=== PATIENT | female | born 1945 | race Caucasian/White ===

== ENCOUNTER 2017-05-13 19:56 | Inpatient (IN) | payer MEDICARE ==
[~2017-05-13] VITALS: Ht 154.9 cm; Wt 61.7 kg
[~2017-05-13 19:56] MED LIST: ALEVE220 M1 PO; CYCLOBENZAPRINE5 MG PO; DILT-XR180 MG PO; FLUTICASONE PRO16 GM NS; IBUPROFEN600 MG PO; LANSOPRAZOLE30 MG PO; PROBIOTIC1 EAC1 PO; SIMVASTATIN40 MG PO; TRAMADOL HCL50 MG PO; VITAMIN D31000 UNIT PO
[2017-05-13] MEDS ORDERED: COZAAR25 MG PO (20:13)
--- NOTE | 2017-05-14 00:10 | NUR ---
PT ARRIVED TO ROOM 119 FROM ED VIA STRETCHER. PT ABLE TO STAND AND TRANSFER TO BED WITH STANDBY ASSISTANCE. ADMISSION AND ASSESSMENT COMPLETED. DEMONSTRATED TO PT HOW TO CONTROL BED AND CALL NURSE IF NEEDED. PT RATES PAIN AN 8/10 IN RLQ. OFFERED MORPHINE, PT DECLINED. PT STATES SHE WOULD LIKE TO JUST TRY TO RELAX. PT NPO. NO FURTHER NEEDS AT THIS TIME. CALL LIGHT IN REACH.
--- NOTE | 2017-05-14 02:27 | NUR ---
IN TO CHECK ON PT, PT UP TO BATHROOM. PT REQUEST MORPHINE FOR PAIN. ASSISTED BACK TO BED. MORPHINE 2 MG GIVEN. IV ABX GIVEN. PT NPO. CALL LIGHT IN REACH.
--- NOTE | 2017-05-14 04:30 | NUR ---
IN TO CHECK ON PT, PT APPEARS TO BE SLEEPING. IVF INFUSING, PULSE OX IN PLACE. CALL LIGHT I9N REACH.
--- NOTE | 2017-05-14 05:06 | NUR ---
PT UP TO BATHROOM WITH ERNESTO ASSIST FROM [facility]. PT REQUEST PAIN MEDICATION, MORPHINE 2 MG GIVEN FOR 9/10 PAIN. PT NOTIFIED THAT IF PAIN DOES NOT RESOLVE WER CAN REPEAT MORPHINE DOSE. WILL REASSES AND MONIOR FOR PAIN. CALL LIGHT IN REACH.
--- NOTE | 2017-05-14 05:18 | NUR ---
PT ADMITTED TO FLOOR DURING SHIFT FOR ACUTE APPY. PT HAS RESTED INTERMITTENTLY THROUGH OUT SHIFT. C/O RLQ ABD PAIN, IV MORPHINE GIVEN. PULSE OX IN PLACE. D5LR @ 125 MLS INFUSING. PT NPO. STANDBY ASSIST TO BATHROOM. VITALS STABLE, AFIBRILE.
--- NOTE | 2017-05-14 05:36 | NUR ---
IN TO CHECK ON PT, PT STATES HER PAIN IS STILL 9/10. NOTED SHARP STABBING PAIN IN THE UMBILICAL REGION. PT OFFERED REMAINING MORPHINE DOSE. PT IS CONCERNED ABOUT RESPIRATORY DEPRESSION. STATES " I FEEL LIKE I AM HAVING A HARD TIME TAKING A BREATH NOW." REASSURED PT THAT PULSE OX IS IN PLACE AND RN WILL MONITOR FOR RESPIRATORY DEPRESSION. CURRENT O2 91% ON RA. PT PLACED ON O2 FOR COMFORT. PT AGREES TO PLAN, MORPHINE 2 MG GIVEN. WILL CONTINUE TO MONITOR PT.
--- NOTE | 2017-05-14 07:59 | NUR ---
PATIENT PAINFUL, 4MG MORPHINE GIVEN SLOW IV. REPORT RECEIVED FROM INVASIVE CARDIOVASCULAR TECHNOLOGIST, PATIENT REQUESTING USE OF BED ENCISO BECAUSE HAS BEEN UP SEVERAL TIMES TO URINATE AND STATES TOO PAINFUL. ALLERGY SPECIALIST HELPING PATIENT WASH FACE/ BRUSH TEETH.
--- NOTE | 2017-05-14 08:04 | NUR ---
DR HAMILTON IN TO SEE PATIENT.
--- NOTE | 2017-05-14 08:13 | NUR ---
surgery department asking for patient to be ready.
--- NOTE | 2017-05-14 10:49 | NUR ---
05/14/17 1049 Lauren Ascencio report from sec reporting consultant.
--- NOTE | 2017-05-14 11:26 | EKG ---
[facility] [address] [place] [address] Signed Sinus tachycardia Nonspecific ST and T wave abnormality Abnormal ECG When compared with ECG of 23-AUG-2016 11:29, Vent. rate has increased BY 41 BPM Confirmed by MADHAV MOBLEY MD ([id number]) on 05/14/2017 11:26:21 AM Electronically Signed By: MADHAV MOBLEY MD 05/14/17 1126 PATIENT NAME: BAKARI PARRA Electrocardiogram DATE OF : 49 PHYSICIAN: MADHAV MOBLEY MD REPORT #: [id number] REPORT IS CONFIDENTIAL AND NOT TO BE RELEASED WITHOUT AUTHORIZATION
--- NOTE | 2017-05-14 11:50 | NUR ---
back into room after PACU. daughters in room. Renata ANDRES did vital signs.
[2017-05-14] MEDS ORDERED: LOVAZA1 GM PO (12:24)
[2017-05-14] MEDS ORDERED: MOTRIN IB200 MG PO (12:28)
[2017-05-14] MEDS ORDERED: SENNA LAX8.6 MG PO (12:30)
[2017-05-14] MEDS ORDERED: COLACE100 MG PO (12:30)
--- NOTE | 2017-05-14 12:32 | NUR ---
MED REC COMPLETE WITH PATIENT AND DAUGHTERS WHO ARE INCREDIBLY WELL INFORMED. PATIENT FILLS AT [facility] [place].
--- NOTE | 2017-05-14 12:39 | NUR ---
Patient used bedpan per request and was given pre-surgery wipe down by Raiza MARKS.
--- NOTE | 2017-05-14 12:47 | NUR ---
vital signs reviewed from the 1240 time. Maria Fernanda mcclelland did them.
--- NOTE | 2017-05-14 12:59 | NUR ---
AT [address] HAMILTON ABOUT PATIENT FEELING NAUSEATED. VERBAL ORDER RECEIVED FOR PHENERGAN 12.5MG IV X 1 DOSE.
--- NOTE | 2017-05-14 13:01 | NUR ---
DR HAMILTON IN TO ROOM TO TALK WITH FAMILY AND PATIENT.
--- NOTE | 2017-05-14 14:54 | NUR ---
BEEN SLEEPING/RESTING IN ROOM WITH SISTER BY HER. STATES PAIN 4/10 AND DOESN'T NEED ANY PAIN MEDICATIONS NOW.
--- NOTE | 2017-05-14 16:19 | NUR ---
NOTIFIED DR HAMILTON ABOUT SOME CRACKLE SOUNDS DEVELOPING IN BASES OF LUNGS AND SOME SWELLING IN HER FEET, NEW ORDERS TO REDUCE IV FLUID RATE.
--- NOTE | 2017-05-14 19:10 | NUR ---
REPORT RECVD FROM DESHAUN ANDRES. PT AWAKE, RESTING IN BED. PT STATES HE PAIN IS MUCH BETTER SINCE SURGERY. LAP SITES C/D/I, MIRANDA DRAIN NOTED TO HAVE SANGUINEOUS DRAINAGE PRESENT. PULSE OX IN PLACE. IV ABX INFUSING, PT TOLERATING WELL. HERNDON IN PLACE, PER DESHAUN ANDRES OKAY PER DR. HAMILTON TO D/C HERNDON. PT DENIES PAIN AND NAUSEA AT THIS TIME. NO FURTHER NEEDS, DAUGHTER AT BEDSIDE. CALL LIGHT IN REACH.
--- NOTE | 2017-05-14 20:50 | NUR ---
IN TO SEE PT, PT AWAKE IN BED. ASSESSMENT COMPLETE. PT STATES HER PAIN IS "OKAY" AT THIS TIME. HERNDON CATH D/C PER MD ORDER. PT TOLERATING CLEAR LIQUIDS AT THIS TIME. PULSE OX IN PLACE. O2 AT 2L FOR SAT OF 90%. O2 DESATURATION NOTED WHILE SLEEPING DURING PREVIOUS SHIFT. PT ADVISED TO CALL IF SHE FEELS THE URGE TO URINATE. NO FURTHER NEEDS AT THIS TIME. DAUGHTER AT BEDSIDE, CALL LIGHT IN REACH.
--- NOTE | 2017-05-14 23:45 | NUR ---
IN TO CHECK ON PT, PT SLEEPING. AROUSES EASILY TO SOUND. PT STATES PAIN IS TOLERABLE AT THIS TIME. PT DOES NOT FEEL THE NEED TO VOID AT THIS TIME. WILL CONTINUE TO MONITOR UO. NO FURTHER NEEDS AT THIS TIME, DAUGHTER AT BEDSIDE. CALL LIGHT IN REACH.
--- NOTE | 2017-05-15 02:18 | NUR ---
BOTTLE LABEL INSPECTOR IN RROM TO OBTAIN VITALS. PT UP TO BATHROOM, UO 400 MLS. PT AMBULATED IN ROOM, TOLERATED WELL. REQUESTING MEDICATION FOR PAIN. DISCUSSED ORAL VS IV MEDICATION. DUE TO PT HAVING BOUT OF NAUSEA AFTER TAKING PO MEDICATION ON PREVIOUS SHIFT PT REQUEST MORPHINE. MORPHINE 2 MG GIVEN. PT BACK TO BED TOLERATED WELL. IV ABX STARTED. PT GIVEN POPSICLE. DRSG C/D/I, MIRANDA IN PLACE. NO FURTHER REQUEST AT THIS TIME. DAUGHTER AT BEDSIDE. CALL LIGHT IN PLACE.
--- NOTE | 2017-05-15 04:12 | NUR ---
IN TO PT'S ROOM, PT REQUEST HELP UP TO BATHROOM. PT OOB, TOLERATED WELL. UO 600 MLS. PT ASSISTED BACK TO BED. DAUGHTER AT BEDSIDE TALKING TO PT. PT STATES HER PAIN IS "GOOD." IV ABX INFUSING. PT ATTEMPTING TO REST. NO FURTHER NEEDS AT THIS TIME. CALL LIGHT IN REACH.
--- NOTE | 2017-05-15 05:08 | NUR ---
PT HAS HAD UNEVENTFUL SHIFT, RESTED WELL. PT HAS HAD MINIMAL PAIN, PRN MORPHINE GIVEN X1. DENIES NAUSEA. HERNDON CATH D/C AT 2049. PT HAS HAD GOOD UO. PT ON CLEAR LIQUID, TOLERATING WELL. PULSE OX IN PLACE. IV ABX GIVEN. LAP SITE DRSG C/D/I, MIRANDA IN PLACE WITH SEROSANGUINEOUS NOTED. VITALS STABLE, AFIBRILE.
--- NOTE | 2017-05-15 07:38 | NUR ---
BEDSIDE REPORT RECEIVED FROM MAIDA ANDRES AT 0715. PT LYING IN BED AWAKE RUBBING ABDOMEN. REPORTS SOME PAIN. LAP SITES C/D/I. MIRANDA DRAIN EMPTYING SEROSANGUINOUS FLUID. RN REPORTED GOOD URINE OUTPUT AFTER HERNDON REMOVED. LAC S/L.
--- NOTE | 2017-05-15 07:48 | NUR ---
PATIENT CALLED TO BE MOVED TO CHAIR. ALSO WANTED TO GET UP TO GO TO BATHROOM. PATIENT TRIED TO REFUSE TO WEAR NON-SLIP SOCKS, CONVINCED HER OTHERWISE. WHITEBOARD UPDATED.
--- NOTE | 2017-05-15 10:49 | NUR ---
PATIENT'S DAUGHTERS HELPED HER WITH AM CARE. THEY CHANGED HER GOWN, DID HER HAIR, ETC. PATIENT REQUESTED PILLOW UNDER HER FEET BECAUSE BED IS NOT 100% FLAT.
--- NOTE | 2017-05-15 11:46 | NUR ---
PATIENT IN BED DOING WELL. DAUGHTERS IN ROOM
--- NOTE | 2017-05-15 12:19 | NUR ---
pt c/o nausea. zofran order received from Dr Presley. Mepilex dressing around MIRANDA insertion site changed. slight drainage noted.
--- NOTE | 2017-05-15 12:44 | NUR ---
NURSE IN ROOM
--- NOTE | 2017-05-15 13:56 | NUR ---
PT PARTICULAR WITH ALL CARES. DILAUDID PO GIVEN. C/O ABD PAIN AND NAUSEA. ZOFRAN GIVEN FOR NAUSEA. ENCOURAGING PATIENT TO AMBULATE. PT WANTS TO REST. WILL ALLOW PATIENT TO REST AND THEN WILL HAVE HER AMBULATE THIS AFTERNOON. DAUGHTER ATTENTIVE AT BEDSIDE. FLAGYL GIVEN PO.
--- NOTE | 2017-05-15 15:46 | NUR ---
PATIENT IN ROOM WITH FAMILY.
--- NOTE | 2017-05-15 17:44 | NUR ---
ENCOURAGED AMBULATION TODAY, SBA. MIRANDA DRAIN HAD TOTAL OF 70ML OUT TODAY. ROOM AIR NOW. WILL WATCH WHILE RESTING/SLEEPING. CONT PULSE OX IN PLACE. LAP SITES X3 C/D/I WITH STERISTRIPS. FLAGYL/CIPRO. SHOWER OK TOMORROW. REGULAR DIET TOLERATED. C/O ABD PAIN-- LIKELY RELATED TO GAS. ENCOURAGED INCENTIVE SPIROMETER TODAY TOO (NO ORDER) PER PT REQUEST TO AVOID PNEUMONIA. DEPENDENT ON DAUGHTERS TO VOICE NEEDS-- ENCOURAGE PATIENT TO MAKE NEEDS KNOWN.
--- NOTE | 2017-05-15 19:20 | NUR ---
REPORT RECVD FROM VANESA ANDRES. PT STATES SHE HAS HAD AN "OKAY DAY." PT WAS ADVANCED TO A REG SOFT DIET, BUT HAS NOT HAD A LOT OF INTAKE. JUST PRIOR TO REPORT PT HAD A BOUT OF NAUSEA AND 150 MLS OF EMESIS. PT STATES " i FEEL BETTER NOW." LAP SITE IN THE UPPER EPIGASTRIC AND UNMBILICAL AREA D/I. DRSG SURROUNDING MIRANDA NOTED TO BE SATURATED WITH SEROUS FLUID, WILL CHANGE DRSG. PT IS SL, PULSE OX IN PLACE WHEN SLEEPING. O2 REQUIRED WHEN SLEEPING DUE TO DESATURATION. DAUGHTER AT BEDSIDE. NO FURTHER NEEDS AT THIS TIME, CALL LIGHT IN PLACE.
--- NOTE | 2017-05-15 19:45 | NUR ---
PT UP IN [place] AMBULATING WITH ASSIST FROM DAUGHTER. PT TOLERATED WELL. PT ASSISTED BACK TO BED. CALL LIGHT IN REACH.
--- NOTE | 2017-05-15 20:45 | NUR ---
IN TO CHECK ON PT. PT STATES SHE IS FEELING NAUSEATED AT THIS TIME. C/O R MID/LQ PAIN. PT HAS RECVD ZOFRAN AT THIS TIME. DISCUSSED WITH THE PT THAT PO ABX AND MEDICATIONS ARE ORDERED FOR 2099. PT BELIEVES SHE WILL BE ABLE TO TAKE HER MEDICATIONS. NO FURTHER NEEDS AT THIS TIME. CALL LIGHT IN PLACE.
--- NOTE | 2017-05-15 20:46 | NUR ---
PT UP IN [place] AMBULATING WITH ASSIST FROM DAUGHTER. PT TOLERATED WELL. PT ASSISTED BACK TO BED. CALL LIGHT IN REACH.
--- NOTE | 2017-05-15 21:20 | NUR ---
IN TO ROOM TO GIVE PM MEDICATION. PT LAYING IN BED WITH CLOTH ON FACE RUBBING RLQ. PT APPEARS TO BE SWEATING. PT STATES SHE FELLS NAUSEATED. PT DOES NOT FEEL THAT SHE CAN TAKE PO MEDICATIONS AT THIS TIME. PT GIVEN SELENE CRACKER AND PEANUT BETTER. DISCUSSED CONTACTING MD FOR ONGOING NAUSEA, PT AGREES WITH PLAN. NO FURTHER NEEDS AT THIS TIME. CALL LIGHT IN REACH.
--- NOTE | 2017-05-15 21:50 | NUR ---
IN TO CHECK ON PT, PT IN BED. PT C/O CONTINUED NAUSEA. IVF STARTED. RN TO MED ROOM TO OBTAIN PHENERGAN. PHONE CALL FROM TELEPHARMACY RECVD TO VERIFY MERREM DOSE. PER CLEM CHESTER [facility] STANDARD DOSE MERREM 1 GM IV Q8. CLEM WILL SEND FAX MESSAGE AND WOULD LIKE TO VERIFY WITH MD. IN TO PT ROOM, PHENERGAN STARTED. PT UP IN BED WRETCHING. COLD CLOTH AND WATER GIVEN. NAUSEA IMPROVED AFTER PHENERGAN INFUSION. PT RESTING IN BED, NO FURTHER NEEDS AT THIS TIME. CALL LIGHT IN REACH.
--- NOTE | 2017-05-15 22:00 | NUR ---
IN TO CHECK ON PT, IVF STARTED. PT CONTINUES TO HAVE NAUSEA. RN OUT OF ROOM TO OBTAIN PHENERGAN. CALL RECVD FROM CLEM [facility] AT TELEPHARMACY TO VERIFY MERREM DOSE. PER CLEM STANDARD DOSE OF MERREM 1 GM IV Q8HRS GIVEN FOR APPENDICITIS UNLESS DECREASED DUE TO AGE OR KIDNEY FX. CLEM WILL SEND FAX COPY OF VERIFICATION AND ASKS THAT MD VERIFY ORDER. WILL CALL MD FOR CLARIFICATION.
--- NOTE | 2017-05-15 22:00 | NUR ---
SPOKE WITH DR. HAMILTON MEDICATION CHANGES FOLLOWS DUE TO NAUSEA AND ONGOING PAIN. START D5LR @ 85 MLS/HR, PHENERGAN 12.5 MG IV q6P FOR N/V, START MERRAM 500 MG, IV Q8 AND STOP PO ABX UNTIL PT ABLE TO TAKE PO. ORDERS VERIFIED WITH DR. HAMILTON VIA READ BACK METHOD.
--- NOTE | 2017-05-15 22:10 | NUR ---
IN PT ROOM TO ADMINISTER PHENERGAN. PT SITTING UP IN BED, RUBBING STOMACH, SWEATING. PT STATES " I FEEL LIKE I NEED TO THROW UP AND IT WOULD BE BETTER." PHENERGAN 12.5 MG DILUTED IN 20 MLS NS INFUSED OVER 10 MINUTES. DURING TIME OF INFUSING PT BEGAN WRETCHING, NO EMESIS NOTED. NAUSEA IMPROVED WITH MEDICATION. PO PAIN MEDICATION OFFERED, PT DECLINED. PT STATES "I JUST WANT TO SLEEP." WILL CONTINUE TO MONITOR.
--- NOTE | 2017-05-15 22:30 | NUR ---
DISCUSSED CLARIFICATION WITH DR. HAMILTON. PER DR. ALFONSO HERRERA TO CHANGE TO MERREM 1 GM IV Q8 HRS PER RECOMMENDATION OF CLEM [facility] ORDER VERIFIED BY READ BACK, WILL CHANGE AND SEND TO PHARMACY.
--- NOTE | 2017-05-16 00:10 | NUR ---
IN TO CHECK ON PT, PT AWAKE. PT STATES " I STILL FEEL LIKE I NEED TO VOMIT." PT STATES SHE FEELS THAT SHE HAS NOT BEEN GETTING HER MEDICATION FOR GERD FOR THE PAST 3 DAYS WHICH IS CONTRIBUTING TO HER NAUSEA AT THIS TIME. PT REPOSITION FOR COMFORT AND GIVEN A WARM COMPRESS FOR RLQ PAIN. DRSG AT MIRANDA SITE NOTED TO BE SATUARTED WITH SEROUS FLUID. DRSG CHANGED. WILL CALL MD FOR TO DISCUSS PT'S C/O GERD.
--- NOTE | 2017-05-16 00:15 | NUR ---
SPOKE WITH DR. HAMILTON, DISCUSSED PT C/O GERD. DR. HAMILTON STATES THAT HE HAD ORDERED IV MEDICATION ROBIN AND POST OPERATIVE FOR ACID REFLUX. PER DR. HAMILTON ORDER CHANGED TO PO DURING MORING ROUNDS. PER DR. HAMILTON GIVE MYLANTA 60 CC, PO NOW FOR GERD. ORDER VERIFIED BY READ BACK. MEDICATION ORDERED.
--- NOTE | 2017-05-16 00:30 | NUR ---
MYLANTA 60 CC GIVEN TO PT BY PRE K SPECIAL EDUCATION TEACHER. PT ADMINISTERED 30 CC, DECLINED 30 CC. RN IN TO CHECK ON PT DURING ADMINISTRATION. PT RESTING IN BED. PT IS HOPING TO GET SOME SLEEP. REPOSITIONED FOR COMFORT.
--- NOTE | 2017-05-16 01:50 | NUR ---
IN TO CHECK ON PT, VITAL SIGNS OBTAINED BY ASSOCIATE PROFESSOR OF AUTOMATION. VS STABLE, PT AFIBRILE. PT OFFERED PAIN MEDICATION FOR FACIAL GREMICE AND OVERALL LOOK OF DISCOMFORT. PT DECLINED. PT STATES " I AM JUST GOING TO TRY TO GO BACK TO SLEEP." WILL CONTINUE TO MONITOR. DAUGHTER AT BEDSIDE. CALL LIGHT IN REACH.
--- NOTE | 2017-05-16 04:12 | NUR ---
PT CALLED, ASSITED UP TO BATHROOM TO VOID. PT REQUEST IV PAIN MEDICATION AT THIS TIME. RN IN ROOM TO ADMINISTER MORPHINE 4 MG, PT SITTING UP IN BED STATING " I FEEL LIKE I AM GOING TO BE SICK." RN RETRIVED ZOFRAN FOR NAUSEA, MEDICATION ADMINISTERED. MORPHINE ADMINISTER SECONDARY TO ZOFRAM. PT REPOSITION AND GIVEN WET CLOTH. NAUSEA IMPROVED. PULSE OX AND O2 IN PLACE. WILL CONTINUE TO MONITOR PT. DAUGHTER AT BEDSIDE. CALL LIGHT IN PLACE.
--- NOTE | 2017-05-16 05:40 | NUR ---
PT HAS HAD DIFFICULT SHIFT, HAS HAD MINIMAL SLEEP. PT C/O NAUSEA AND WRETCHING X2, NO EMESIS NOTED. C/O ONGOING PAIN IN RLQ. POOR PO INTAKE. NEW ORDERS GIVEN TO RESTART D5LR @ 85 ML, PHENERGAN 12.5 MG, IV Q6P AND MERREM 1GM IV Q8. PER MD TO D/C PO ABX UNTIL PT IS ABLE TO TOLERATE PO. PT GIVEN PHERERGAN, ZOFRAN AND MORPHINE FOR PAIN. VITALS STABLE, AFIBRILE. VOIDING QS. MIRANDA DRAIN IN PLACE WITH LEAKAGE NOTED AROUND SITE. PT AMBULATES WITH STANBY ASSIST. PULSE OX IN PLACE AND O2 @ 1.5L WHILE SLEEPING DUE TO DESATURATION. LAP SITE C/D/I.
--- NOTE | 2017-05-16 06:00 | NUR ---
PT CALLED, IN TO ASSIST UP TO BATHROOM. PT TOLERATED WELL. PT STATES " I FEEL BETTER." PT AMBULATED TO CHAIR. PT STATES HER NAUSEA IS BETTER. OFFERED PHENERGAN, PT AGREED TO MEDICATION BEFORE BREAKFAST. BREAKFAST ORDER. IV ABX STARTED. NO FURTHER NEEDS AT THIS TIME. DAUGHTER AT BEDSIDE. CALL LIGHT IN REACH.
--- NOTE | 2017-05-16 08:00 | NUR ---
PATIENT UP AMBULATED IN HER[place] X1, DISCUSSED PAIN CONTROL REGIME AND AGREED UPON POC FIRST ADMINISTERING IV ZOFRAN AND THEN 1 TAB PO DILAUDID AND 2 MG IV MORPHINE. PATIENT TOLERATED WELL. ATE 30% OF BREAKFAST TOLERATING EGGS AND STRAWBERRIES. PATIENT AND FAMILY HAD COMPLAINTS FROM STAFF YESTERDAY, REPORTED TO CHARGE NURSE AND WET AND DRY SUGAR BIN OPERATOR. PATIENT ENCOURAGED TO STAY UP AND, PATIENT STATES " I NEED A NAP". VS STABLE.
--- NOTE | 2017-05-16 08:28 | NUR ---
PT AWAKE IN CHAIR. EMPTYED MIRANDA TUBE. TOOK TO BR. EMPTYED GARBAGE. CHANGED LINENS.
--- NOTE | 2017-05-16 08:30 | NUR ---
CALLED DR. HAMILTON TO NOTIFY HIM OF INCREASED DRAINAGE IN MIRANDA TUBE, CLOUDY BLOOD TINGED DRAINAGE. REINFORCED WITH GAUZE AND ABD AGAINST SITE, AFTER PATIENT'S SHOWER. NO NEW ORDERS AT THIS TIME. PATIENT BACK IN BED, AFTER BEING TOLD TO STAY UP. PATIENT STATES " THE PAIN IS GETTING BETTER, BUT I AM SO WORN OUT FROM THE NIGHT BEFORE".
--- NOTE | 2017-05-16 13:00 | NUR ---
DR. HAMILTON ROUNDING ON PATIENT, DISCUSSED WITH PATIENT THE IMPORTANCE OF STAYING UP DURING THE DAY. ORDERS TO NOT ALLOW BLINDS TO BE LOWERED. MOVE PATIENT TO WINDOW SIDE WITH VIEW, AND NEW PAIN MEDICAITONS, TRAMADOL AND MOTRIN. DC'D IV MORPHINE. PATIENT VERBALIZES UNDERSTANDING. IS NOW UP AMBULATING IN HALLS WITH FAMILY. STATES " DOCTOR WOULDN'T WANT TO BE TREATED LIKE THIS, WHY IS HE TREATING ME LIKE THIS?" REASSURED PATIENT POC WAS FOR HER OWN WELL BEING.
--- NOTE | 2017-05-16 15:00 | NUR ---
PATIENT HAS BEEN AMBULATING FREQUENTLY, FAMILY IN ROOM. PATIENT APPEARS AWAKE. BLINDS OPEN. DRAINAGE INTO MIRANDA SLOWING, CONTINUES TO APPEAR CLOUDY. REINFORCED WITH NEW ABDS. PATIENT STATES " I AM FEELING OKAY." ABDOMEN ROUND, BOWEL TONES ACTIVE. GAUZE TO ABDOMEN REINFORCED. BOWEL TONES ACTIVE. PATIENT UP AMBULATING IN HALLS WITH FAMILY.
--- NOTE | 2017-05-16 15:40 | NUR ---
PATIENT WAS UP IN THE HALLWAY AMBULATING WITH ASSIST FROM HER DAUGHTER. PATIENT TOLERATES AMBULATION WELL AND IS STEADY ON HER FEET. PATIENT MIRANDA SITE LEAKING SERROUS FLUID, DRAIN TUBE STRIPPED AND NEW DRESSING APPLIED TO THE DRAIN SITE ABDOMINAL BINDER PLACED ON HER AT THIS TIME PER PATIENT REQUEST.
--- NOTE | 2017-05-16 18:00 | NUR ---
PATIENT TOLERATING PO WELL, NO NAUSEA OR VOMITTING. PATIENT STATES " I FEEL NORMAL AGAIN " PATIENT HAS NOT REVIEVED ANY NARCOTICS FOR PAIN CONTROL SINCE THIS MORNING. HAS BEEN UP THROUGHOUT THE DAY AMBULATING AT LEAST 6 TIMES, PATIENT FAMILY PROVIDING SUPPORT. MIRANDA DRAIN NOTED LESS DRAINAGE. PATIENT STATES " I HAVE THE URGE TO PASS GAS, BUT ITS JUST NOT QUITE THERE" BOWEL TONES ACTIVE, VS STABLE. GOOD I&O. LUNG SOUNDS CLEAR THROUGHOUT. PATIENT SITTING IN RECLINER CROSS LEGGED. APPEARS CALM AND COMFORTABLE. RATES PAIN 2/10 ON PAIN SCALE. NO ACID REFLUX COMPLAINTS AT THIS TIME.
--- NOTE | 2017-05-16 18:17 | NUR ---
TOOK PT PUDDING. FRESH ICE WATER. TOOK TO THE BR. DOING WELL
--- NOTE | 2017-05-16 19:52 | NUR ---
REPORT RCVD FROM NAZ ANDRES. IN ROOM TO SEE PT, PT AWAKE AND UP IN CHAIR. AT BEGINNING OF SHIFT RN NOTED PT AMBULATING IN HALLWAY. PT STATES SHE "HAD A GREAT DAY." PT STATES HER PAIN IS WELL CONTROLLED. DAUGHTER AT BEDSIDE. NO FURTHER NEEDS AT THIS TIME. CALL LIGHT IN PLACE.
--- NOTE | 2017-05-16 21:10 | NUR ---
IN TO CHECK ON PT, PT AWAKE PREPARING FOR BED. PT UP TO THE RESTROOM WITH NO ASSIST, TOLERATED WELL. STEADY ON FEET. PT REPORTS AND RN WITNESSED POSITIVE FLATUS. PM MEDICATION GIVEN. MOTRIN GIVEN FOR PAIN OF 10/10. IV ABX STARTED. VITALS OBTAINED. PT AFIBRILE. NO FURTHER NEEDS AT THIS TIME. DAUGHTER AT BEDSIDE. CALL LIGHT IN PLACE.
--- NOTE | 2017-05-16 23:44 | NUR ---
IN TO CHECK ON PT, PT IN BED. APPEARS NOT BE SLEEPING. NO APPARENT DISTRESS NOTED. DAUGHTER AT BEDSIDE. CALL LIGHT IN REACH.
--- NOTE | 2017-05-17 01:55 | NUR ---
PATIENT USED THE BATHROOM.
--- NOTE | 2017-05-17 02:02 | NUR ---
IN TO CHECK ON PT, PT AWAKE. PT STATES PAIN IS GOOD. OFFERED MEDICATION FOR PAIN, PT DECLINED. VITALS OBTAINED VITALS STABLE, AFIBRILE. PT UP TO BATHRROM WITH STANDBY ASSIST, TOLERATED WELL. MIRANDA NOTED TO HAVE SCANT OUTPUT. PT BACK TO BED. PT STATES " I SLEPT LIKE A ROCK." NO FURTHER NEEDS AT THIS TIME. DAUGHTER SLEEPING AT BEDSIDE. CALL LIGHT IN REACH.
--- NOTE | 2017-05-17 04:15 | NUR ---
IN TO CHECK ON PT, PT APPEARS TO BE SLEEPING. RR EVEN AND UNLABORED. NO APPARENT DISTRESS NOTED. IVF INFUSING. DAUGHTER SLEEPING AT BEDSIDE. CALL LIGHT IN REACH.
--- NOTE | 2017-05-17 05:15 | NUR ---
PT HAS HAD A UNEVENTFUL SHIFT, RESTED WELL. PT HAS HAD MINIMAL PAIN THAT IS WELL CONTROLLED WITH MOTRIN. DENIES NAUSEA AND HEARTBURN. IVF D5LR @ [address] WITH MINIMAL OUTPUT. DRSG C/D/I. POSITIVE FLATUS. UP TO AMBULATE 1 PERSON STANDBY ASSIST, TOLERATES WELL. REGULAR DIET, TOLERATING WELL.
--- NOTE | 2017-05-17 08:16 | NUR ---
PATIENT IV SITE RED AT AND HARDENED. IV ANTIBIOTIC MOSTLY INFUSED THIS MORNING. PATIENT TOLERATING GOOD PO AND DRINKING WELL. POC CARE IS TO TRANSITION PATIENT TO PO ANTIBIOTICS, WILL NOTIFIY DR. HAMILTON BEFORE STARTING NEW IV ACCESS. PROVIDED PATIENT WITH WARM PACK TO PLACE AT SITE. PATIENT UP AMBULATED IN HALLS, NO COMPLAINTS OF HEARTBURN. PAIN WELL CONTROLLED WITH IBUPROFEN. PLAN TO SHOWER AFTER BREAKFAST. PATIENT REPORTS PASSING LOTS OF FLATUS AND FEELS SHE MAY HAVE BM SOON. DRAINAGE FROM MIRANDA DECREASED AND SCANT AMOUNTS NOTED NOW. STOMACH LESS DISTENDED AND SOFT. ACTIVE BOWEL TONES. PUNCTURE SITES C/D/I, NO SIGNS OF INFECTION.
--- NOTE | 2017-05-17 09:41 | NUR ---
PT DOING WELL. SET UP FOR SHOWER.
--- NOTE | 2017-05-17 10:35 | NUR ---
PT AWAKE IN CHAIR. DOING WELL.
--- NOTE | 2017-05-17 13:00 | NUR ---
DR. HAMILTON CALLED TO FLOOR, ORDERED TO DC IV, AND IV ANTIBIOTIC MERREM, RE START PO FLAGYL AND CIPRO FROM PREVIOUS ORDERS ON HOLD. PATIENT VERBALIZED UNDERSTANDING. NOW AMBULATING IN HALLS. ADMINISTERED MOTRIONM, RATES PAIN 3/10 ON PAIN SCALE. ACTIVE FLATUS.
--- NOTE | 2017-05-17 13:17 | NUR ---
PT AWAKE IN CHAIR DOING WELL TOOK LUNCH TRAY. FRESH WATER.
[2017-05-17] MEDS ORDERED: METRONIDAZOLE250 MG PO (15:40)
[2017-05-17] MEDS ORDERED: CIPROFLOXACIN500 MG PO (15:40)
[2017-05-17] MEDS ORDERED: MOTRIN IB200 MG PO (15:41)
--- NOTE | 2017-06-05 07:48 | OR ---
[facility] [address] [place], [place] [address] Signed DATE OF PROCEDURE: 05/14/17 PREOPERATIVE DIAGNOSIS: Acute appendicitis. POSTOPERATIVE DIAGNOSIS Generalized peritonitis with right lower abdominal abscess and gross purulence. Severe perforated appendicitis. PROCEDURE Laparoscopy with laparoscopic drainage of abscess fluid and peritoneal lavage. Laparoscopic appendectomy (complicated and difficult). SURGEON: Susie Hamilton MD. ANESTHESIA General endotracheal, Maria Fernanda Gaspar CRNA and local 10 mL of 0.25% Marcaine with Epinephrine. INDICATION This 72-year-old white woman was feeling poorly for the past 2 days and yesterday at approximately 6:00 p.m. had a sudden onset of severe right lower abdominal pain. She presented late in the evening to the emergency room where she was evaluated by Dr. Neff. She was found to have tenderness in the right lower abdomen. A CT scan was performed which showed inflammatory changes as well as probable appendicitis. She was fluid resuscitated, given intravenous antibiotic Cefoxitin, parental pain medication and so on. Evaluation this morning shows her to be markedly tender in the right lower abdomen with generalized peritonitis as well. She has been fluid resuscitated and now to undergo laparoscopic appendectomy as appropriate. The risks of bleeding, infection, need for open procedure, need for other indicated procedures and so forth was all reviewed in detail. She understands and wished to proceed. FINDINGS Gross purulence was noted with fibrinous peel over the bowel in the lower abdomen on the right. The liver and gallbladder were essentially normal. Drainage of the abscess cavity including above the fibrinous peel of the bowel surfaces was undertaken and the appendix was noted to be markedly inflamed and with probable perforation and sealing of the base of the appendix. The appendix was transected and flushed with the cecum. There were no complications. DESCRIPTION OF PROCEDURE The patient was brought to the operating room, given a general endotracheal anesthetic. Electronically Signed By: SUSIE HAMILTON MD 06/05/17 0748 PATIENT NAME: BAKARI PARRA OPERATIVE REPORT DATE OF : 49 PHYSICIAN: SUSIE HAMILTON MD REPORT #: [id number] REPORT IS CONFIDENTIAL AND NOT TO BE RELEASED WITHOUT AUTHORIZATION [facility] [address] [place], [place] [address] Signed A Leroy catheter was placed. Preoperative antibiotic Cefoxitin had been given. Sequential compression device stockings were used. The abdomen was prepared with a Chlorhexidine solution and draped sterilely. Infraumbilical incision was made and using an open Kadie cannula technique, pneumoperitoneum was achieved to a level of 14 mmHg of carbon dioxide gas. Intraabdominal inspection immediately noted a fibrinous peel of purulence and collection of pus in the right lower abdomen and along the right pericolic gutter. Examination of the upper abdomen showed a normal liver and a slightly distended gallbladder but not an acutely inflamed gallbladder. A 10 mm epigastric port was placed and the scope replaced to that area. Manipulation of the bowel loops showed them to be matted together in the right lower abdomen related to the fibrinous peel which had been present for some time. A suprapubic port was then placed under direct visualization and 2 hand manipulation of the lower abdominal contents undertaken. Irrigation was undertaken to aspirate purulent material within the peritoneal cavity and most localized in the right lower abdomen. The fibrinous peel over the small bowel was later generally cleaned up entirely with irrigation. The taenia libera of the right colon was identified and followed down to what would be considered the base of the appendix. A phlegmonous mass was noted there and with various manipulations the appendix could be delivered. It was located in the inferolateral position. Ultimately, the entire appendix was freed from the fibrinous peel and the findings were consistent with acute perforated appendicitis with abscess. Further manipulation of the appendix was undertaken and the mesoappendix appeared to be fused to the appendix itself. Ultimately a plane was developed between the two and using an Endo DEAN stapling device the mesoappendix was secured. Further dissection of the base of the appendix need the transition to cecum rather unclear. With various manipulations ultimately the base of the appendix was transected with 2 separate loads providing a wide base consistent with the base of the cecum in continuity with the appendix. The appendix was placed in an Endobag and extracted through the infraumbilical port site and opened. Dense inflammatory changes and so forth were noted. There was no sign of fecalith or anything of that sort. I suspect that the appendix had been perforated and the congealed inflammatory tissue obscuring the kevin opening at this time. Additionally irrigation was undertaken copiously in the right lower abdomen and right pericolic gutter and over the liver as well. The small bowel was freed from its encumbrances with fibrinous peel irrigated as well. Photographs were taken throughout. Given the extent of her problem, a drain was deemed appropriate. To the suprapubic port a 7 mm flat Edwin drain was placed and to the right lower abdomen and right pericolic gutter. I have secured the skin with nylon suture. The trocars were then removed under direct visualization showing no sign of bleeding. The infraumbilical fascial incision was reapproximated with interrupted 0 Vicryl suture. All wounds were copiously irrigated with saline solution. Skin closed with interrupted 3-0 Vicryl. Steri-Strips were applied. The operation was prolonged, complicated, and difficult on the basis of the extent of Electronically Signed By: SUSIE HAMILTON MD 06/05/17 0748 PATIENT NAME: BAKARI PARRA OPERATIVE REPORT DATE OF : 49 PHYSICIAN: SUSIE HAMILTON MD REPORT #: [id number] REPORT IS CONFIDENTIAL AND NOT TO BE RELEASED WITHOUT AUTHORIZATION [facility] [address] [facility] [place], [place] [address] Signed inflammation and so forth. It was accomplished safely. She was extubated without problem and taken recovery in good condition. MD HIMA Buchanan/Hany /[id number] cc: MD Kevin Buenrostro DO Electronically Signed By: SUSIE HAMILTON MD 06/05/17 0748 PATIENT NAME: BAKARI PARRA OPERATIVE REPORT DATE OF : 49 PHYSICIAN: SUSIE HAMILTON MD REPORT #: [id number] REPORT IS CONFIDENTIAL AND NOT TO BE RELEASED WITHOUT AUTHORIZATION
--- NOTE | 2017-06-05 08:27 | DS ---
[facility] [address] [place], [place] [address] Signed DATE OF DISCHARGE: 05/17/17 REASON FOR ADMISSION This 72-year-old white woman is retired from [employer], is , her is away in [place] with 5 grown children. She presented to the emergency room with approximately 2 days of vague abdominal pain. Her evaluation by Dr. Neff was concerning for clinical diagnosis of acute appendicitis. Her white count was 10.5. A CT scan of the abdomen was performed showing dilated inflammatory changes of the appendix. She was admitted for further evaluation and care. PAST MEDICAL HISTORY Does include degenerative cervical spine disease despite morphine been given on a routine basis in the past. She does take Naprosyn and occasions of Motrin as well. PERTINENT PHYSICAL EXAMINATION GENER AL: A pleasant white woman, who is quite uncomfortable in appearance, alert and oriented and not systemically toxic. HEENT: Mucous membranes reasonably moist. NECK: Trachea is midline. CHEST: Clear. HEART: Regular without murmur. ABDOMEN: Nondistended. Rovsing sign is positive. She does have peritoneal findings including right lower abdominal tenderness. There is no palpable mass. HOSPITAL COURSE She was admitted at about midnight and given fluid resuscitation, parenteral antibiotics and pain medication. 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 Plans were made for probable laparoscopic appendectomy. She underwent laparoscopic evaluation, which showed abscess fluid and fibrinous peel of the small bowel on the right side of the abdomen. The abscess was drained and copious irrigation undertaken. She was found to have a markedly inflamed appendix, which may have had resealing of the perforation site in the area. This was excised completely. The gallbladder was not pathologic in appearance nor was the liver or other areas of the abdomen. A drain was placed given the extent of the inflammation and the abscess itself. Given her findings, she was changed from Cefixime to Meropenem. She had marked improvement of her symptoms of abdominal pain. The drain did not drain purulent material, but did drain a copious amount of relatively thin, slightly turbid fluid. She was found to have some intolerance of pretty much any oral analgesic that had opiate including Dilaudid. She was transitioned to primarily Motrin, which she tolerated well. Electronically Signed By: SUSIE HAMILTON MD 06/05/17 0827 PATIENT NAME: BAKARI PARRA DISCHARGE SUMMARY DATE OF : 49 PHYSICIAN: SUSIE HAMILTON MD REPORT #: [id number] REPORT IS CONFIDENTIAL AND NOT TO BE RELEASED WITHOUT AUTHORIZATION [facility] [address] [place], [place] [address] Signed The drain was placed diminished in output and ultimately was able to be removed as it showed only a small amount of clear fluid. By day of discharge, she is ambulating well, tolerating a regular diet, has minimal incisional pain, well managed by Motrin alone and has tolerated oral antibiotic regimen, which will include Flagyl and Cipro. Her discharge plan included a return to see me in approximately 4 weeks or so. She will call for an appointment tomorrow. She is to lift no more than 20 pounds for the next 2 weeks. The drain has been removed. Band-Aid covering the site in the suprapubic area will be removed tomorrow. She is permitted to shower. As regards driving, as long as she is not taking opiates, she should use caution in attempting to drive in public roads, but should do well overall in that regard. She is permitted to shower, but should leave Steri-Strips on. DISCHARGE MEDICATIONS Include Cipro 500 mg 1 tab p.o. b.i.d., #10; also Flagyl 250 mg 1 tab p.o. t.i.d., #15. She will continue with her usual medications including: Diltiazem XR 180 mg p.o. daily. Also fluticasone propionate 2 puffs in each nostril daily. Lansoprazole 30 mg p.o. daily. Simvastatin 40 mg p.o. daily. Vitamin D3 a 1000-unit capsule daily. Naprosyn 220-mg capsule one p.o. daily for back pain. Probiotic lactobacillus acidophilus 1 tab p.o. daily. Cyclobenzaprine (Flexeril) 5 mg p.o. as needed for neck and back spasm. Losartan (Cozaar) 25 mg p.o. daily. Lovaza (omega-3 capsule) 2 caps p.o. b.i.d. DSS 100 mg p.o. daily. Senna laxative 8.6-mg tablet p.o. daily. DISCHARGE DIAGNOSES Peritonitis related to right-sided lower abdominal abscess related to severe appendicitis. Status post laparoscopic drainage of abscess with lavage and laparoscopic appendectomy and placement of drain. Hypertension. General intolerance to opiate medications. Chronic cervical spine pain with degenerative disease. Dyslipidemia. Electronically Signed By: SUSIE HAMILTON MD 06/05/17 0827 PATIENT NAME: BAKARI PARRA DISCHARGE SUMMARY DATE OF : 49 PHYSICIAN: SUSIE HAMILTON MD REPORT #: [id number] REPORT IS CONFIDENTIAL AND NOT TO BE RELEASED WITHOUT AUTHORIZATION [facility] [address] [place], [place] [address] Signed MD HIMA Buchanan/Hany /[id number] cc: MD Shane Buenrostro DO Electronically Signed By: SUSIE HAMILTON MD 06/05/17 0827 PATIENT NAME: BAKARI PARRA DISCHARGE SUMMARY DATE OF : 49 PHYSICIAN: SUSIE HAMILTON MD REPORT #: [id number] REPORT IS CONFIDENTIAL AND NOT TO BE RELEASED WITHOUT AUTHORIZATION
--- NOTE | 2017-06-05 08:27 | HP ---
[facility] [address] [place], [place] [address] Signed DATE OF ADMISSION: 05/14/17 REASON FOR ADMISSION: Acute appendicitis. HISTORY OF PRESENT ILLNESS This 72-year-old white woman is retired from [employer], , her away in [place] now and with 5 grown children, two of which are on their way from [place] to be with her. She has not felt particularly well for 2 days but last night at approximately 6:00 p.m. had the sudden onset of right lower abdominal pain. The pain was worsening and sharp and markedly uncomfortable. She presented to the emergency room where she was evaluated by Dr. Neff confirming the clinical diagnosis of acute appendicitis. Her white count was normal at 10.5. A CT scan of the abdomen was obtained which showed a dilated inflamed appendix. It was about 11 o'clock or so at night when I was called. I had her directly admitted with fluid resuscitation, IV antibiotic administration and parental pain medication. She remains quite uncomfortable despite Morphine being given on a routine basis. She has had no vomiting since admission. PAST MEDICAL HISTORY Includes degenerative cervical spine disease C1 through C7 as well as a fall in the past few months hurting her T8 vertebra. She has hypertension as well. CURRENT MEDICATIONS At admission include Flexeril 5 mg p.o. q.h.s., Losartan 25 mg p.o. daily, Diltiazem XR 18 0 mg p.o. daily, Fluticasone 1 puff nasal as needed, Lansoprazole 30 mg p.o. daily, Simvastatin 40 mg p.o. daily, Vitamin D3 1000 units daily, Naprosyn 220 mg p.o. daily and Probiotic daily. REVIEW OF SYSTEMS She is as described. She is retired. She seems very active and seems far younger than age of 72. Her is away in [place] on a trip. She has 5 grown children, two of which are in [place] and are on their way to [place] to be with her. She has 2 dogs which she cares about a lot and are being managed by someone else right now. She denies any dysphagia or hematemesis. Has no blood per rectum. Denies any chest pain or pulmonary symptoms at this time. PHYSICAL EXAMINATION GENERAL: Pleasant white woman, who is quite uncomfortable in appearance. She is alert and oriented. Not systemically toxic. Mucous membranes are reasonably moist. Trachea is midline. CHEST: Clear. Electronically Signed By: SUSIE HAMILTON MD 06/05/17 0827 PATIENT NAME: BAKARI PARRA HISTORY AND PHYSICAL DATE OF : 49 PHYSICIAN: SUSIE HAMILTON MD REPORT #: [id number] REPORT IS CONFIDENTIAL AND NOT TO BE RELEASED WITHOUT AUTHORIZATION [facility] [address] [place] [address] Signed HEART: Regular without murmur. ABDOMEN: Nondistended. Rovsing sign is positive. She does have peritoneal findings. EXTREMITIES: No clubbing, cyanosis, or edema. LABORATORY DATA Show white count of 10.5, hematocrit 45.3, platelets 230,000. Chem profile, normal except for potassium slightly low at 3.3, calcium 10.4, glucose 134. Urinalysis is essentially normal. I reviewed the CT scan. There was marked inflammation of the appendix and dilated appendix located in the anterolateral aspect of the cecum. The gallbladder was somewhat distended but I see no evidence of stones. ASSESSMENT Clinical and radiographic findings are most consistent with acute appendicitis. I doubt this represents biliary disease as well. I have recommended laparoscopy with laparoscopic appendectomy and other indicated procedures. The risks of bleeding, infection, need for conversion to open operation, missed diagnosis, failure of diagnosis, and other unforeseen complications were reviewed in detail. She understands and wishes to proceed. We will do this this morning straightaway. I have called the OR for scheduling. MD HIMA Buchanan/Hany /[id number] cc: Shane Shine DO Electronically Signed By: SUSIE HAMILTON MD 06/05/17 0827 PATIENT NAME: BAKARI PARRA HISTORY AND PHYSICAL DATE OF : 49 PHYSICIAN: SUSIE HAMILTON MD REPORT #: [id number] REPORT IS CONFIDENTIAL AND NOT TO BE RELEASED WITHOUT AUTHORIZATION
== END 2017-05-17 17:05 | disposition home or self-care (01) | DRG 340 ==
LOC: ED 19:56 → MS 19:58
PROVIDERS: ADMIT Surgery
PROC: 0DTJ4ZZ Resection of Appendix, Percutaneous Endoscopic Approach (ICD-10-PCS; principal; 2017-05-14 08:15)
DX: K35.2 Acute appendicitis with generalized peritonitis (principal); K21.9 Gastro-esophageal reflux disease without esophagitis; I10 Essential (primary) hypertension; Z87.891 Personal history of nicotine dependence
CPT/HCPCS: 00840; 74177; 80053; 81001; 83690; 85025; 88304; 93005; 93010; 94762; J0694; J1100; J1170; J1885; J2185; J2270; J2370; J2405; J2550; J2704; J3010; J7030; J7120; Q9967

== ENCOUNTER 2024-05-04 14:11 | Emergency (ER) | payer MEDICARE ==
[~2024-05-04] VITALS: Ht 154.9 cm; Wt 53.6 kg
[~2024-05-04 14:11] MED LIST changes: +CIPROFLOXACIN500 MG PO; +COLACE100 MG PO; +COZAAR25 MG PO; +DONEPEZIL HCL5 MG PO; +LOVAZA1 GM PO; +METRONIDAZOLE250 MG PO; +MOTRIN IB200 MG PO; +SENNA LAX8.6 MG PO
--- OUTSIDE RECORDS SUMMARY | 2024-05-04 14:13 | XMS ---
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 EPelon VISIT COUNT (12 MO.) 2 [facility] TOTAL 2 NOTE: Visits indicate total known visits. ED/UCC VISIT TRACKING (12 MO.) 05/04/2024 14:12 [facility] TYPE: Emergency COMPLAINT: - ALTERED LOC 04/28/2024 14:36 [facility] TYPE: Emergency COMPLAINT: - WEAKNESS/FEVER INPATIENT VISIT TRACKING (12 MO.) 04/28/2024 19:46 [facility] TYPE: Observation COMPLAINT: - PROLONGED QT INTERVAL DIAGNOSES: - Abnormal electrocardiogram [ECG] [EKG] - Acquired absence of both cervix and uterus - Allergy status to narcotic agent - Allergy status to other antibiotic agents - Allergy status to other drugs, medicaments and biological substances - Allergy status to sulfonamides - COVID-19 - Essential (primary) hypertension - Frequency of micturition - Gastro-esophageal reflux disease without esophagitis - Hypokalemia - Hypomagnesemia - 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
[2024-05-04 14:37] LABS: BASOPHILS 0.7 % (0-2); EOSINOPHILS 1.9 % (0-6); LYMPHOCYTES 34.4 % (24-44); MCH 32.2 (27-36); MCHC 34.7 g/dl (30-36); MCV 92.9 fl (81-99); MONOCYTES 10.5 % (0-12); NEUTROPHILS 52.5 % (39-80); PLATELET COUNT 309 K/uL (140-440); RBC 4.95 M/ul (4.3-5.7); RDW 12.8 (10.5-15.0)
[2024-05-04 14:42] LABS: INR 0.95 (0.80-1.30)
[2024-05-04 14:45] LABS: ALBUMIN/GLOBULIN RATIO 1.08 (1.1-2.4); ANION GAP 17.4 (7-21); BILIRUBIN, TOTAL 0.4 ng/dL (0.2-1.0); BUN/CREATININE RATIO 13.54 (6.0-28.6); CREATININE, SERUM 0.96 mg/dL (0.55-1.02); MAGNESIUM 1.7 mg/dL (1.8-2.4); POTASSIUM 3.4 mmol/L (3.5-5.1); PROTEIN, TOTAL 7.7 g/dL (6.4-8.2)
[2024-05-04] MEDS ORDERED: SODIUM CHLORIDE 0.9% 1,000 ML IV PRN (14:45)
[2024-05-04 15:44] LABS: BILIRUBIN, URINE NEGATIVE (negative); BLOOD/HGB, URINE NEGATIVE (Negative); KETONE, URINE NEGATIVE (Negative); LEUK ESTERASE, URINE NEGATIVE (negative); NITRITE, URINE NEGATIVE (negative)
[2024-05-04 17:00] VITALS: BP 137/84
== END 2024-05-04 17:00 | disposition home or self-care (01) ==
LOC: ED 14:11
PROVIDERS: Emergency Medicine
DX: R40.4 Transient alteration of awareness (principal); I10 Essential (primary) hypertension; K21.9 Gastro-esophageal reflux disease without esophagitis; E78.00 Pure hypercholesterolemia, unspecified; Z87.891 Personal history of nicotine dependence; Z88.2 Allergy status to sulfonamides; Z88.1 Allergy status to other antibiotic agents; Z88.5 Allergy status to narcotic agent; Z88.8 Allergy status to other drugs, medicaments and biological substances; Z79.899 Other long term (current) drug therapy
CPT/HCPCS: 36415; 70450; 71045; 80053; 81003; 83735; 85025; 85610; 85730; 96360; 99285-25; J7030

== ENCOUNTER 2024-11-22 10:14 | Day surgery (SDC) | payer MEDICARE ==
[~2024-11-22] VITALS: Ht 149.9 cm; Wt 54.5 kg
[~2024-11-22 10:14] MED LIST changes: +IBLOOD GLUCOSE TEST STRIP 1 EA TEST VI PRN; +LACTATED RINGER'S 1,000 ML IV SCH; +LIDOCAINE HCL 1% 5 ML SDV INJ ONE; +MIDAZOLAM HCL 5 MG/5 ML VIAL IV PRN; +fentaNYL citrate 100 MCG/2 ML VIAL IV PRN
[2024-11-22 10:34] VITALS: BP 156/64
[2024-11-22] MEDS ORDERED: MIDAZOLAM HCL 5 MG/5 ML VIAL ONE (11:09)
[2024-11-22] MEDS ORDERED: fentaNYL citrate 100 MCG/2 ML VIAL ONE (11:09)
--- NOTE | 2024-11-22 12:24 | NUR ---
11/22/24 1224 Radha Barnes OXYGEN SATURATION IS 97% ON 4L VIA NC. OXYGEN IS REDUCED TO 2L VIA NC.
[2024-11-22 13:01] VITALS: BP 113/68
--- NOTE | 2024-11-23 09:54 | OR ---
[facility] [address], [place] [address] Signed DATE OF OPERATION: 11/22/2024 SURGEON: Susie Hamilton MD PREOPERATIVE DIAGNOSES: 1. Family history of colon cancer (mother). 2. Known history of diverticulosis. POSTOPERATIVE DIAGNOSIS: Polyps x6. PROCEDURE: Total colonoscopy to cecum with cold snare polypectomy x2. Cold morcellation polypectomy x4. ANESTHESIA: Intravenous sedation fentanyl 100 mcg and Versed 10 mg. INDICATION: This 79-year-old white woman is a patient of Dr. Perez. She underwent colonoscopy by me in 2007 at which time, she was noted to have diverticulosis. She also had a hyperplastic polyp of the rectum. She was seen by me in 2021, anticipating colonoscopy six months prior to that. However, she had a possible Cologuard test which was said to be negative. She is admitted at this time to undergo colonoscopy on the basis of her family history of colon cancer in her mother, though she is generally asymptomatic. She does describe some (fecal incontinence), though was not grossly incontinent of urine. She is admitted at this time to undergo colonoscopy for surveillance primary based on her family history, understands the risk of bleeding, infection, and perforation. FINDINGS: The prep was adequate with irrigation. There was some corn and other fibrous material that should not have been there of course. She had diverticula extending from the sigmoid to the cecum. She had a staple line which suggested possible prior colon resection. I do not have an actual history of that. I will need to review that with her further. Numerous diverticula were noted. There was a sessile polyp of the cecum that was measured at 1 cm or so, which was excised with cold snare technique and another smaller polyp of the left colon at 60 cm which was excised with cold snare technique as well. Therefore, possibly hyperplastic, but more likely adenomatous polyps of the rectum excised with cold morcellation technique. Electronically Signed By: SUSIE HAMILTON MD 11/23/24 0954 PATIENT NAME: BAKARI PARRA OPERATIVE REPORT DATE OF : 49 REPORT #: [id number] PHYSICIAN: SUSIE HAMILTON MD PCP: MARRY PEREZ MD REPORT IS CONFIDENTIAL AND NOT TO BE RELEASED WITHOUT AUTHORIZATION [facility] [address] [place], [place] [address] Signed DESCRIPTION OF PROCEDURE: The patient was brought to the endoscopy suite and placed in lateral decubitus position, given intravenous sedation to the point of slurred speech and nystagmus with full cardiopulmonary monitoring. Digital rectal examination showed normal sphincter tone for age. An Olympus video colonoscope was passed in the rectum and immediately noting four probably adenomatous polyps. The scope was advanced beyond this where an appearance of submucosal pool were noted though specific anastomosis was not identified. Scope was advanced more proximally where numerous diverticula were noted. Indeed, she had giant diverticula throughout the colon. The scope was ultimately passed to the cecum with full intubation of the cecum, but was slightly challenging and did require some hand manipulation of the abdominal wall to do so. Irrigation was undertaken of the cecum, which noted at least 1 cm polyp of the cecum. This was clearly adenomatous. It was excised with cold snare technique and additional morcellation. Pieces of polyp were extracted and passed for pathology. Resection bed was hemostatic by the end. Scope was withdrawn. Numerous diverticula were once again seen. At approximately 60 cm from the anal verge was another sessile polyp this was much smaller than the previous. This was excised with cold snare technique as well. Further withdrawal showed only diverticulosis until the rectum in the mid to upper portion where four relatively flat adenomatous appearing polyps were noted as confirmed by Narrow-Band imaging. These were excised with cold morcellation technique. Retroflexed view showed no gross abnormalities to low rectum. Scope was removed. The patient was taken to the recovery room in good condition. CONCLUDING DIAGNOSIS: Multiple polyps and extensive diverticulosis. PLAN: Recommend repeat colonoscopy in 3 to 5 years. Would recommend a fiber supplement, Metamucil one scoop p.o. daily and high-fiber diet otherwise. She will return to the ongoing care of Dr. Perez. MD HIMA Buchanan/MODL /[id number] Electronically Signed By: SUSIE HAMILTON MD 11/23/24 0954 PATIENT NAME: BAKARI PARRA OPERATIVE REPORT DATE OF : 49 REPORT #: [id number] PHYSICIAN: SUSIE HAMILTON MD PCP: MARRY PEREZ MD REPORT IS CONFIDENTIAL AND NOT TO BE RELEASED WITHOUT AUTHORIZATION [address] [address] Signed cc: Dr. Perez Copies: ~ Electronically Signed By: SUSIE HAMILTON MD 11/23/24 0954 PATIENT NAME: BAKARI PARRA KD OPERATIVE REPORT DATE OF : 49 REPORT #: [id number] PHYSICIAN: SUSIE HAMILTON MD PCP: MARRY PEREZ MD REPORT IS CONFIDENTIAL AND NOT TO BE RELEASED WITHOUT AUTHORIZATION
--- NOTE | 2024-11-24 10:31 | PATH ---
[facility] [address], [place] [address] Signed SPECIMEN(S): A CECUM POLYP SPECIMEN(S): B DESCENDING POLYP, 50 CM SPECIMEN(S): C RECTAL POLYPS SPECIMEN SOURCE: A. CECUM POLYP B. DESCENDING POLYP, 50 CM C. RECTAL POLYPS CLINICAL HISTORY: Pre-: History of colon polyps, rectal bleeding, anal seepage. Post: Multiple polyps and diverticulosis FINAL PATHOLOGIC DIAGNOSIS: A. Cecum, polypectomy: - Tubular adenoma B. Colon, descending at 50 cm, polypectomy: - Tubular adenoma C. Rectum, polypectomies: - Hyperplastic polyps BRP MICROSCOPIC EXAMINATION: Histologic sections of all submitted blocks are examined by light microscopy. These findings, together with the gross examination, support the pathologic diagnosis. GROSS DESCRIPTION: A. The specimen, labeled and designated "Graymer, M, cecum polyp," is received in formalin and consists of four pal soft tissue fragments, ranging from 0.4-0.6 cm. Entirely submitted in (A1). B. The specimen, labeled and designated "Graymer, M, descending polyp, 50 cm," is received in formalin and consists of one pal soft tissue fragment, 1.1 cm. Entirely submitted in (B1). C. The specimen, labeled and designated "Graymer, M, rectal polyps," is received in formalin and consists of eight pal soft tissue fragments, ranging from 0.1-0.3 cm. Entirely submitted in (C1). AB (under the direct supervision of a pathologist) The Gross Description was prepared using a voice recognition system. The report was reviewed for accuracy; however, sound-alike word errors, addition and/or deletions may occur. If there is any PATIENT NAME: BAKARI PARRA PATHOLOGY DATE OF : 49 REPORT #: [id number] PHYSICIAN: DARYN THOMPSON PCP: MARRY PEREZ MD REPORT IS CONFIDENTIAL AND NOT TO BE RELEASED WITHOUT AUTHORIZATION [facility] [address], [place] [address] Signed question about this report, please contact Client Services. ADDITIONAL NOTES: Immunohistochemical and/or in situ hybridization studies if performed in this case included appropriate positive controls that reacted as expected. This test was developed and its performance characteristics determined by [facility]. It has not been cleared or approved by the U.S. Food and Drug Administration. The FDA has determined that such clearance or approval is not necessary. This test is used for clinical purposes. It should not be regarded as investigational or for research. [facility] is certified under the Clinical Laboratory Improvement Amendments of 1988 (CLIA) as qualified to perform high complexity clinical laboratory testing. PERFORMING LABORATORY: Technical component was performed by [facility], [address] [place] [address] (CLIA# [id number]). Professional interpretation was performed by [facility] - [facility], [address] [place] [address] (CLIA#: [id number]). Diagnostician: Omi Ortiz MD Pathologist Electronically Signed 11/24/2024 Copies: ~ PATIENT NAME: BAKARI PARRA PATHOLOGY DATE OF : 49 REPORT #: [id number] PHYSICIAN: DARYN PATHOLOGY PCP: MARRY PEREZ MD REPORT IS CONFIDENTIAL AND NOT TO BE RELEASED WITHOUT AUTHORIZATION
== END 2024-11-22 13:11 | disposition home or self-care (01) ==
LOC: DS 10:14 → OPS 10:14 → DS 14:00
PROVIDERS: ATTEND Surgery
PROC: 0DBP8ZZ Excision of Rectum, Via Natural or Artificial Opening Endoscopic (ICD-10-PCS; 2024-11-22)
PROC: 0DBG8ZZ Excision of Left Large Intestine, Via Natural or Artificial Opening Endoscopic (ICD-10-PCS; principal; 2024-11-22 11:00)
DX: Z12.11 Encounter for screening for malignant neoplasm of colon (principal); D12.0 Benign neoplasm of cecum; D12.4 Benign neoplasm of descending colon; K62.1 Rectal polyp; K57.30 Diverticulosis of large intestine without perforation or abscess without bleeding; I10 Essential (primary) hypertension; K21.9 Gastro-esophageal reflux disease without esophagitis; Z80.0 Family history of malignant neoplasm of digestive organs; Z88.5 Allergy status to narcotic agent; Z88.8 Allergy status to other drugs, medicaments and biological substances
CPT/HCPCS: 88305; 99153; G0500; J2250; J3010; J7121

== ENCOUNTER 2025-02-01 17:32 | Emergency (ER) | payer MEDICARE ==
[~2025-02-01] VITALS: Ht 149.9 cm; Wt 55.2 kg
[~2025-02-01 17:32] MED LIST changes: -IBLOOD GLUCOSE TEST STRIP 1 EA TEST VI PRN; -LACTATED RINGER'S 1,000 ML IV SCH; -LIDOCAINE HCL 1% 5 ML SDV INJ ONE; -MIDAZOLAM HCL 5 MG/5 ML VIAL IV PRN; -fentaNYL citrate 100 MCG/2 ML VIAL IV PRN
[2025-02-01] MEDS ORDERED: LIDODERM1 EACH TOP (19:26)
[2025-02-01] MEDS ORDERED: IBUPROFEN 800 MG TAB PO ONE (19:30)
[2025-02-01] MEDS ORDERED: LIDOCAINE HCL 4% 1 EACH PATCH TD ONE (19:30)
[2025-02-01 19:35] VITALS: BP 150/74
== END 2025-02-01 19:36 | disposition home or self-care (01) ==
LOC: ED 17:32
DX: S20.211A Contusion of right front wall of thorax, initial encounter (principal); I10 Essential (primary) hypertension; E78.00 Pure hypercholesterolemia, unspecified; K21.9 Gastro-esophageal reflux disease without esophagitis; W18.30XA Fall on same level, unspecified, initial encounter; Z79.899 Other long term (current) drug therapy; Z88.2 Allergy status to sulfonamides; Z88.5 Allergy status to narcotic agent; Z88.1 Allergy status to other antibiotic agents; Z88.8 Allergy status to other drugs, medicaments and biological substances; Z87.891 Personal history of nicotine dependence
CPT/HCPCS: 71045; 99283-25; A9270